=== PATIENT | male | born 1990 ===

== ENCOUNTER 2017-10-16 11:41 | Emergency (ER) | payer OTHER ==
[2017-10-16 11:55] VITALS: BP 121/74
--- NOTE | 2017-10-16 12:02 | ED ---
GI/ HPI - HPI Summary HPI Summary: 27M presents with burning with urination for past couple days. He states that 5 days ago he developed penile discharge and dysuria. He states the penile discharge has resolved. He denies any lesions. He states he had this pain years ago and they could not figure out a cause but gave him zpack and it resolved. He denies any hematuria. He denies any flank pain, n/v/d or fever. He denies any history of kidney stones. [facility]ith[facility] and did cultures but never called him back. He states symptoms got better and penile discharge stopped but they did not resolve like last time. He denies any testicular or rectal pain. - History of Current Complaint Chief Complaint: UCGU Time Seen by Provider: 10/16/17 11:52 Stated Complaint: BURNING URINATION Pain Intensity: 6 - Allergy/Home Medications Allergies/Adverse Reactions: Allergies Allergy/AdvReac Type Severity Reaction Status Date / Time No Known Allergies Allergy Verified 10/16/17 11:51 Home Medications: Home Medications NK [No Home Medications Reported] 10/16/17 [History Confirmed 10/16/17] PMH/Surg Hx/FS Hx/Imm Hx Endocrine/Hematology History: Denies: Hx Diabetes, Hx Thyroid Disease Cardiovascular History: Denies: Hx Hypertension Respiratory History: Denies: Hx Asthma, Hx Chronic Obstructive Pulmonary Disease (COPD) GI History: Denies: Hx Ulcer Infectious Disease History: No Infectious Disease History: Denies: Hx Hepatitis, Hx Human Immunodeficiency Virus (HIV), Traveled Outside the [place] in Last 30 Days - Family History Known Family History: Negative: Renal Disease - Social History Alcohol Use: Rare Substance Use Type: Reports: None Smoking Status (MU): Never Smoked Tobacco Review of Systems Negative: Fever Negative: Chest Pain Negative: Shortness Of Breath Negative: Abdominal Pain, Vomiting, Nausea Positive: dysuria. Negative: hematuria All Other Systems Reviewed And Are Negative: Yes Physical Exam Triage Information Reviewed: Yes Vital Signs On Initial Exam: Initial Vitals Temp Pulse Resp BP Pulse Ox 98.8 F 80 14 121/74 98 10/16/17 11:52 10/16/17 11:52 10/16/17 11:52 10/16/17 11:52 10/16/17 11:52 Vital Signs Reviewed: Yes Appearance: Positive: Well-Appearing Skin: Positive: Warm, Dry Head/Face: Positive: Normal Head/Face Inspection Eyes: Positive: Normal, Conjunctiva Clear ENT: Positive: Pharynx normal Respiratory/Lung Sounds: Positive: Clear to Auscultation, Breath Sounds Present Cardiovascular: Positive: Normal, RRR Abdomen Description: Positive: Nontender, Soft Bowel Sounds: Positive: Present Musculoskeletal: Positive: Normal Neurological: Positive: Normal Psychiatric: Positive: Normal Diagnostics - Vital Signs Vital Signs Temp Pulse Resp BP Pulse Ox 10/16/17 11:52 98.8 F 80 14 121/74 98 - Laboratory Lab Results: Lab Results 10/16/17 Range/Units 11:56 POC Urine Color Yellow POC Urine Clarity Clear POC Urine pH 7.0 (5-9) POC Ur Specif [place] 1.020 (1.010-1.030) POC Urine Protein 1+ A (Negative) POC Ur Glucose (UA) Negative (Negative) POC Urine Ketones Negative (Negative) POC Urine Blood Trace-intact A (Negative) POC Urine Nitrite Negative (Negative) POC Urine Bilirubin Negative (Negative) POC Urine Urobilinogen 0.2 (Negative) POC U Leukocyte Esteras Negative (Negative) Lab Statement: Any lab studies that have been ordered have been reviewed, and results considered in the medical decision making process. GIGU Course/Dx - Course Course Of Treatment: 27M presents with burning with urination for past couple days. He states that 5 days ago he developed penile discharge and dysuria. He states the penile discharge has resolved. He denies any lesions. He states he had this pain years ago and they could not figure out a cause but gave him zpack and it resolved. He denies any hematuria. He denies any flank pain, n/v/ d or fever. He denies any history of kidney stones. [facility] dose [facility] and did cultures but never called him back. He states symptoms got better and penile discharge stopped but they did not resolve like last time. He denies any testicular or rectal pain. on exam nontender abd. urine no uti. will give dose of rocephin as was not given. will also place on doxy. told to follow up with primary. patient understand and agrees with plan. - Diagnoses Differential Diagnoses - Male: STD, Urethritis, Urinary Tract Infection Provider Diagnoses: Urethritis Discharge - Sign-Out/Discharge Documenting (check all that apply): Discharge/Admit/Transfer - Discharge Plan Condition: Good Disposition: HOME Referrals: Denise Parson MD [Primary Care Provider] - Additional Instructions: Follow up with primary if no improvement Drink plenty of fluids since one time dose of medication did not work, will place on doxycyline twice a day for 7 days, wear sunscreen, can take with food as can cause upset stomach Return to ED if develop any new or worsening symptoms - Billing Disposition and Condition Condition: GOOD Disposition: HOME
[2017-10-16] MEDS ORDERED: cefTRIAXone VIAL(*) 250 MG VIAL IM ONE (12:09)
[2017-10-16] MEDS ORDERED: Lidocaine 1% MPF* 2 ML VIAL ONE (12:14)
== END 2017-10-16 12:23 | disposition home or self-care (01) ==
LOC: UCEAST 11:41
DX: N34.2 Other urethritis (principal)
CPT/HCPCS: 81003; 96372; 99202; G0463; J0696

== ENCOUNTER 2018-05-14 08:53 | Emergency (ER) | payer OTHER ==
[2018-05-14 09:02] VITALS: BP 146/76
--- NOTE | 2018-05-14 09:20 | UC ---
Throat Pain/Nasal Cheikh HPI - HPI Summary HPI Summary: 28-year-old male comes to clinic today with a chief complaint of sore throat. He's had upper respiratory tract infection symptoms for about 2 weeks. His sinuses have gradually cleared only still does have some rhinorrhea. Feels like his anterior throat is swollen and is just not getting completely better. He has been using [id number] medications which helped some but overall the symptoms are getting worse. No cough or chest congestion no recent fevers. - History of Current Complaint Chief Complaint: UCRespiratory Stated Complaint: SORE THROAT Time Seen by Provider: 05/14/18 09:11 Pain Intensity: 3 - Allergies/Home Medications Allergies/Adverse Reactions: Allergies Allergy/AdvReac Type Severity Reaction Status Date / Time No Known Allergies Allergy Verified 05/14/18 09:01 Home Medications: Home Medications Guaifen/Dextromethorphan/PE [Robitussin Childrens Coug] 1 liq PO ONCE PRN [History Confirmed 05/14/18] PMH/Surg Hx/FS Hx/Imm Hx Previously Healthy: Yes - Surgical History Surgical History: None - Family History Known Family History: Negative: Renal Disease - Social History Alcohol Use: Occasionally Alcohol Amount: every other night Substance Use Type: None Smoking Status (MU): Former Smoker Amount Used/How Often: here and there Review of Systems All Other Systems Reviewed And Are Negative: Yes Constitutional: Positive: Negative Skin: Positive: Negative Eyes: Positive: Negative ENT: Positive: Sore Throat, Nasal Discharge, Sinus Congestion Respiratory: Positive: Negative Cardiovascular: Positive: Negative Gastrointestinal: Positive: Negative Motor: Positive: Negative Neurovascular: Positive: Negative Musculoskeletal: Positive: Negative Neurological: Positive: Negative Psychological: Positive: Negative Is Patient Immunocompromised?: No Physical Exam Triage Information Reviewed: Yes Appearance: Well-Appearing, No Pain Distress, Well-Nourished Vital Signs: Initial Vital Signs Temp 97.8 F 05/14/18 08:57 Pulse 85 05/14/18 08:57 Resp 18 05/14/18 08:57 BP 146/76 05/14/18 08:57 Pulse Ox 98 05/14/18 08:57 Vital Signs Reviewed: Yes Eye Exam: Normal Eyes: Positive: Conjunctiva Clear ENT: Positive: Pharyngeal erythema, Nasal drainage, TMs normal, Tonsillar swelling Neck exam: Normal Neck: Positive: Supple Respiratory: Positive: Lungs clear, Normal breath sounds, No respiratory distress Cardiovascular: Positive: RRR Musculoskeletal Exam: Normal Musculoskeletal: Positive: Strength Intact, ROM Intact Neurological Exam: Normal Neurological: Positive: Alert, Muscle Tone Normal Psychological Exam: Normal Psychological: Positive: Age Appropriate Behavior Skin Exam: Normal Throat Pain/Nasal Course/Dx - Differential Dx/Diagnosis Provider Diagnosis: Tonsillitis Discharge - Sign-Out/Discharge Documenting (check all that apply): Patient Departure All imaging exams completed and their final reports reviewed: No Studies - Discharge Plan Condition: Stable Disposition: HOME Prescriptions: Amoxicillin/Clavulanate TAB* [Augmentin TAB 875*] 875 mg PO BID #20 tab Patient Education Materials: Tonsillitis (ED) Referrals: Denise Parson MD [Primary Care Provider] - Additional Instructions: FOLLOW UP WITH YOUR DOCTOR IF NOT COMPLETELY IMPROVED. GET RECHECKED FOR ANY WORSENING OF YOUR CONDITION OR QUESTIONS OR CONCERNS. - Billing Disposition and Condition Condition: STABLE Disposition: Home
== END 2018-05-14 09:25 | disposition home or self-care (01) ==
LOC: UCEAST 08:53
DX: J03.90 Acute tonsillitis, unspecified (principal); Z87.891 Personal history of nicotine dependence
CPT/HCPCS: 99212; G0463

== ENCOUNTER 2018-05-17 09:36 | Emergency (ER) | payer OTHER ==
[2018-05-17 09:42] VITALS: BP 131/81
--- NOTE | 2018-05-17 09:52 | UC ---
Throat Pain/Nasal Cheikh HPI - HPI Summary HPI Summary: 28-year-old male comes to clinic today with a chief complaint of some abdominal discomfort and diarrhea that started in the last day since he started the antibiotic Augmentin for tonsillitis. Patient's been sick for more than 2 weeks with initially upper respiratory tract infection symptoms including rhinorrhea sore throat and swollen tonsils. 3 days ago the patient was seen here and for symptoms going on for more than 2 weeks he started on Augmentin 875 mg by mouth twice a day. Patient's been taking the medication with food he' s noticed that after he takes the medication is stomach feels upset. In the last day he's had loose stools 2 times day. This is new since he started the Augmentin. To stop taking the Augmentin and then his tonsil started getting worse they had been getting better while he was on the Augmentin. - History of Current Complaint Chief Complaint: UCGeneralIllness Stated Complaint: FOLLOW UP Time Seen by Provider: 05/17/18 09:42 Pain Intensity: 0 - Allergies/Home Medications Allergies/Adverse Reactions: Allergies Allergy/AdvReac Type Severity Reaction Status Date / Time No Known Allergies Allergy Verified 05/17/18 09:42 PMH/Surg Hx/FS Hx/Imm Hx Previously Healthy: Yes - Surgical History Surgical History: None - Family History Known Family History: Negative: Renal Disease - Social History Alcohol Use: Occasionally Alcohol Amount: every other night Substance Use Type: None Smoking Status (MU): Former Smoker Amount Used/How Often: here and there Review of Systems All Other Systems Reviewed And Are Negative: Yes Constitutional: Positive: Negative Skin: Positive: Negative Eyes: Positive: Negative ENT: Positive: Sore Throat Respiratory: Positive: Negative Cardiovascular: Positive: Negative Gastrointestinal: Positive: Diarrhea - hpi Motor: Positive: Negative Neurovascular: Positive: Negative Musculoskeletal: Positive: Negative Neurological: Positive: Negative Psychological: Positive: Negative Is Patient Immunocompromised?: No Physical Exam Triage Information Reviewed: Yes Appearance: No Pain Distress, Well-Nourished, Ill-Appearing - mild Vital Signs: Initial Vital Signs Temp 98.6 F 05/17/18 09:39 Pulse 90 05/17/18 09:39 Resp 16 05/17/18 09:39 BP 131/81 05/17/18 09:39 Pulse Ox 100 05/17/18 09:39 Vital Signs Reviewed: Yes Eye Exam: Normal Eyes: Positive: Conjunctiva Clear ENT: Positive: Tonsillar swelling - 2+ b/l, no exudates. No peritonsillar swelling., Uvula midline Neck exam: Normal Neck: Positive: Supple Respiratory: Positive: Lungs clear, Normal breath sounds, No respiratory distress Cardiovascular: Positive: RRR Musculoskeletal Exam: Normal Musculoskeletal: Positive: Strength Intact, ROM Intact Neurological Exam: Normal Neurological: Positive: Alert, Muscle Tone Normal Psychological Exam: Normal Psychological: Positive: Age Appropriate Behavior Skin Exam: Normal Throat Pain/Nasal Course/Dx - Course Course Of Treatment: His stomach is upset after each dose of Augmentin. Plan is to stop the Augmentin and switch him over Almas azithromycin. He tells now stopped Augmentin the tonsils started getting worse again. He will continue symptomatic treatment and get reevaluation with any questions or concerns. - Differential Dx/Diagnosis Provider Diagnosis: Tonsillitis, Diarrhea Discharge - Sign-Out/Discharge Documenting (check all that apply): Patient Departure All imaging exams completed and their final reports reviewed: No Studies - Discharge Plan Condition: Stable Disposition: HOME Prescriptions: Azithromyxin GREG (NF) [Z-Greg (Zithromax) 250 mg tabs #6] 2 tab PO .TODAY, THEN 1 DAILY #6 tab Patient Education Materials: Tonsillitis (ED) Referrals: Denise Parson MD [Primary Care Provider] - Additional Instructions: FOLLOW UP WITH YOUR DOCTOR IF NOT COMPLETELY IMPROVED. GET RECHECKED FOR ANY WORSENING OF YOUR CONDITION OR QUESTIONS OR CONCERNS. - Billing Disposition and Condition Condition: STABLE Disposition: Home
== END 2018-05-17 09:55 | disposition home or self-care (01) ==
LOC: UCEAST 09:36
DX: J03.90 Acute tonsillitis, unspecified (principal); R19.7 Diarrhea, unspecified; Z87.891 Personal history of nicotine dependence
CPT/HCPCS: 99212; G0463

== ENCOUNTER 2018-05-18 08:22 | Emergency (ER) | payer OTHER ==
[2018-05-18] MEDS ORDERED: Ondansetron INJ* 2 MG/ML VIAL IV ONE (08:51)
[2018-05-18] MEDS ORDERED: cefTRIAXone VIAL(*) 1,000 MG VIAL IVPB ONE (08:52)
[2018-05-18] MEDS ORDERED: NS 0.9% 1000 ML* 1,000 ML IV ONE (08:52)
[2018-05-18 10:25] VITALS: BP 132/71
[2018-05-18 10:37] LABS: ABS Basophils 0 10^3/ul (0-0.2); ABS Eosinophils 0.1 10^3/ul (0-0.6); ABS Lymphocytes 1.3 10^3/ul (1.0-4.8); ABS Monocytes 0.7 10^3/ul (0-0.8); ABS Neutrophils 6.3 10^3/ul (1.5-7.7); ABS Nucleated RBC 0 10^3/ul; Eosinophil % 0.7 %; Hematocrit 49 % (42-52); Hemoglobin 16.8 g/dl (14.0-18.0); Lymphocyte % 15.8 %; Mean Corpuscular HGB Conc 35 g/dl (31-36); Mean Corpuscular Hemoglobin 31 pg (27-31); Mean Corpuscular Volume 89 fL (80-94); Mean Platelet Volume 8.6 fL (7.4-10.4); Nucleated Red Blood Cells % 0.1; Platelet Count 237 10^3/ul (150-450); Red Cell Distribution Width 12 % (10.5-15); White Blood Count 8.4 10^3/ul (3.5-10.8)
--- NOTE | 2018-05-18 10:41 | UC ---
Abdominal Pain Male HPI - HPI Summary HPI Summary: 28-year-old male comes in with a chief complaint of feeling ill. He's had swollen tonsils for almost 3 weeks. He was started on Augmentin last week for the tonsillitis. [place] like the tonsils were getting somewhat better but every time he took the Augmentin he started getting nauseous and therefore he stopped the Augmentin. When he started Augmentin the tonsils started worsening again. Seen here yesterday and started on azithromycin. Overnight he's felt nauseous queasy and overall not feeling well. He is also anxious about not feeling well. It is important job interview tomorrow. He's noticed lymph nodes being swollen in his neck and in his groin bilaterally. No recent fevers. No focal abdominal pain. He's had diarrhea the last 2 days approximately 2 episodes a day. - History of Current Complaint Chief Complaint: UCAbdominalPain Stated Complaint: ABD PAIN Time Seen by Provider: 05/18/18 08:43 Pain Intensity: 5 - Allergies/Home Medications Allergies/Adverse Reactions: Allergies Allergy/AdvReac Type Severity Reaction Status Date / Time No Known Allergies Allergy Verified 05/18/18 08:33 PMH/Surg Hx/FS Hx/Imm Hx Previously Healthy: Yes - Surgical History Surgical History: None - Family History Known Family History: Negative: Renal Disease - Social History Alcohol Use: Occasionally Alcohol Amount: every other night Substance Use Type: None Smoking Status (MU): Never Smoked Tobacco Amount Used/How Often: here and there Review of Systems All Other Systems Reviewed And Are Negative: Yes Constitutional: Positive: Fatigue Skin: Positive: Negative Eyes: Positive: Negative ENT: Positive: Sore Throat Respiratory: Positive: Negative Cardiovascular: Positive: Negative Gastrointestinal: Positive: Abdominal Pain, Diarrhea, Nausea Genitourinary: Positive: Negative Motor: Positive: Negative Neurovascular: Positive: Negative Musculoskeletal: Positive: Negative Neurological: Positive: Negative Psychological: Positive: Anxious Is Patient Immunocompromised?: No Physical Exam Triage Information Reviewed: Yes Appearance: No Pain Distress, Well-Nourished, Ill-Appearing - MILD Vital Signs: Initial Vital Signs Temp 98.9 F 05/18/18 08:29 Pulse 91 05/18/18 08:29 Resp 20 05/18/18 08:29 BP 120/70 05/18/18 08:29 Pulse Ox 100 05/18/18 08:29 Vital Signs Reviewed: Yes Eye Exam: Normal Eyes: Positive: Conjunctiva Clear ENT: Positive: Tonsillar swelling - NO PERITONSILAR ABSCESS SEEN ON EXAM. OROPHARYNX OPEN., Uvula midline Neck exam: Normal Neck: Positive: Supple, Enlarged Nodes @ - ANTERIOR Respiratory: Positive: Lungs clear, Normal breath sounds, No respiratory distress Cardiovascular: Positive: RRR Abdomen Description: Positive: Nontender, Soft Musculoskeletal Exam: Normal Musculoskeletal: Positive: Strength Intact, ROM Intact, Other: - SWOLLEN B/L INGUINAL LYMPH NODES Neurological Exam: Normal Neurological: Positive: Alert, Muscle Tone Normal Psychological Exam: Normal Psychological: Positive: Age Appropriate Behavior Skin Exam: Normal Abd Pain Male Course/Dx - Course Course Of Treatment: No sign of peritonsillar abscess on exam today. Patient was given a liter normal saline in clinic. Also given Rocephin 1 g and Zofran 4 mg IV. Patient feels slightly better with this. CRP CMP and Monospot were all drawn today and results are pending. The CBC came back while the patient was still CBC results came back while the patient was still in clinic and was discussed the results .CBC is normal .We discussed if he feels worse he should get evaluated in the emergency department. - Differential Dx/Clinical Impression Provider Diagnosis: Lymphadenopathy, Nausea, Tonsillitis Discharge - Sign-Out/Discharge Documenting (check all that apply): Patient Departure All imaging exams completed and their final reports reviewed: No Studies - Discharge Plan Condition: Stable Disposition: HOME Patient Education Materials: Lymphadenopathy (ED), Acute Nausea and Vomiting ( ED), Tonsillitis (ED), Abdominal Pain (ED) Referrals: Denise Parson MD [Primary Care Provider] - Additional Instructions: FOLLOW UP WITH YOUR DOCTOR IF NOT COMPLETELY IMPROVED. GO TO THE EMERGENCY DEPARTMENT FOR ANY WORSENING OF YOUR CONDITION OR QUESTIONS OR CONCERNS. - Billing Disposition and Condition Condition: STABLE Disposition: Home
[2018-05-18 11:03] LABS: EGFR Non-African American 80.1 (>60)
--- NOTE | 2018-05-19 16:39 | UC ---
- Progress Note Progress Note: Lab results were discussed with the patient by phone. He reports that he does feel somewhat better today. He reports his swelling is gone. His stomach is still mildly upset. I discussed the lab results to include the EBV mononucleosis CBC CMP and HIV with the patient. I discussed having him follow-up with his primary care doctor if he is not completely improved and he agreed. Course/Dx - Diagnoses Provider Diagnoses: Lymphadenopathy, Nausea, Tonsillitis Discharge - Sign-Out/Discharge Documenting (check all that apply): Patient Departure All imaging exams completed and their final reports reviewed: No Studies - Discharge Plan Condition: Stable Disposition: HOME Patient Education Materials: Lymphadenopathy (ED), Acute Nausea and Vomiting ( ED), Tonsillitis (ED), Abdominal Pain (ED) Referrals: Denise Parson MD [Primary Care Provider] - Additional Instructions: FOLLOW UP WITH YOUR DOCTOR IF NOT COMPLETELY IMPROVED. GO TO THE EMERGENCY DEPARTMENT FOR ANY WORSENING OF YOUR CONDITION OR QUESTIONS OR CONCERNS. - Billing Disposition and Condition Condition: STABLE Disposition: Home
== END 2018-05-18 11:00 | disposition home or self-care (01) ==
LOC: UCEAST 08:22
DX: R59.1 Generalized enlarged lymph nodes (principal); R11.0 Nausea; J03.90 Acute tonsillitis, unspecified
CPT/HCPCS: 36415; 80053; 85025; 86140; 86308; 86664; 86665; 86703; 96360; 96365; 96374; 99211; G0463; J0696; J2405